=== PATIENT | female | born 1970 | race American Indian/Alaskan Native ===

== ENCOUNTER 2019-04-20 20:24 | Inpatient (IN) | payer MEDICAID ==
[2019-04-20] MEDS ORDERED: SODIUM CHLORIDE 0.9% 1000 ML 1,000 ML IV ONE (21:29)
[2019-04-20 22:09] LABS: Hematocrit 31.5 % (30.3-42.9); Hemoglobin 10.1 gm/dl (10.1-14.3); Mean Corpuscular HGB Conc 32 % (30-34); Mean Corpuscular Volume 74 fl (79-97); Platelet Count 310 K/mm3 (140-440); Red Blood Count 4.24 M/mm3 (3.65-5.03)
[2019-04-20 22:12] LABS: Red Cell Distribution Width 26.7 % (13.2-15.2)
--- NOTE | 2019-04-20 22:20 | Emergency Department Report ---
ED Extremity Problem HPI - General Chief complaint: Extremity Problem,Nontraumatic Stated complaint: RIGHT LEG SWELLING/POSSIBLE INFECTION Time Seen by Provider: 04/20/19 20:52 Source: EMS Mode of arrival: Stretcher Limitations: Physical Limitation - History of Present Illness Initial comments: Patient is a 48-year-old female presents emergency room with complaints of right lower extremity pain and edema that began 3 days ago. She states that she had a blister present to the right calf which opened and drained clear fluid. She states that she has had erythema and increased warmth to the right posterior leg. Patient has a past medical history of lymphedema, arthritis, hypertension, anemia, hyperlipidemia, prediabetes. Patient states that 2 years ago she had cellulitis of the leg and had to spend 3 months in the hospital due to infection. She denies any allergies medications. - Related Data Home Medications Medication Instructions Recorded Confirmed Last Taken Cholecalciferol (Vitamin D3) 5,000 unit PO DAILY 04/21/19 04/21/19 Unknown [Vitamin D3] Glucos Sul 2Kcl/MSM/Chond/C/Mn 1 each PO DAILY 04/21/19 04/21/19 Unknown [Glucosamine Chondroitin Cap] Lisinopril/Hydrochlorothiazide 1 each PO DAILY 04/21/19 04/21/19 Unknown [Zestoretic 20-12.5 mg] Loratadine [Claritin] 10 mg PO DAILY 04/21/19 04/21/19 Unknown Methocarbamol [Robaxin] 1,000 mg PO QID 04/21/19 04/21/19 Unknown Naproxen 500 mg PO BID 04/21/19 04/21/19 Unknown Simvastatin 10 mg PO QHS 04/21/19 04/21/19 Unknown Allergies Allergy/AdvReac Type Severity Reaction Status Date / Time No Known Allergies Allergy Unverified 04/20/19 21:51 ED Review of Systems ROS: Stated complaint: RIGHT LEG SWELLING/POSSIBLE INFECTION Other details as noted in HPI Comment: All other systems reviewed and negative ED Past Medical Hx - Past Medical History Previous Medical History?: Yes Hx Hypertension: Yes Hx Diabetes: Yes Additional medical history: Lymphedema, OA, Obesity, - Social History Smoking Status: Never Smoker Substance Use Type: None - Medications Home Medications: Home Medications Medication Instructions Recorded Confirmed Last Taken Type Cholecalciferol (Vitamin D3) 5,000 unit PO DAILY 04/21/19 04/21/19 Unknown History [Vitamin D3] Glucos Sul 2Kcl/MSM/Chond/C/Mn 1 each PO DAILY 04/21/19 04/21/19 Unknown History [Glucosamine Chondroitin Cap] Lisinopril/Hydrochlorothiazide 1 each PO DAILY 04/21/19 04/21/19 Unknown History [Zestoretic 20-12.5 mg] Loratadine [Claritin] 10 mg PO DAILY 04/21/19 04/21/19 Unknown History Methocarbamol [Robaxin] 1,000 mg PO QID 04/21/19 04/21/19 Unknown History Naproxen 500 mg PO BID 04/21/19 04/21/19 Unknown History Simvastatin 10 mg PO QHS 04/21/19 04/21/19 Unknown History ED Physical Exam - General Limitations: Physical Limitation General appearance: alert, in no apparent distress - Head Head exam: Present: atraumatic, normocephalic - Eye Eye exam: Present: normal appearance - ENT ENT exam: Present: mucous membranes moist - Respiratory Respiratory exam: Present: normal lung sounds bilaterally. Absent: respiratory distress, wheezes, rales, rhonchi, stridor, chest wall tenderness, accessory muscle use, decreased breath sounds, prolonged expiratory - Cardiovascular Cardiovascular Exam: Present: regular rate, normal rhythm, normal heart sounds. Absent: systolic murmur, diastolic murmur, rubs, gallop - Extremities Exam Extremities exam: Present: other (edema present to the BLE right greater than left, erythema and increased warmth present to the posterior leg from the lower half of the thigh down to just above the ankle, no erythema or increased warmth of the LLE) - Neurological Exam Neurological exam: Present: alert, oriented X3 - Psychiatric Psychiatric exam: Present: normal affect, normal mood - Skin Skin exam: Present: warm, dry, intact ED Course Vital Signs 04/20/19 20:27 Temperature 98.9 F Pulse Rate 95 H Respiratory 18 Rate Blood Pressure 142/68 O2 Sat by Pulse 100 Oximetry - Consultations Consultation #1: 04/20/19 23:[address] Irby, hospitalist regarding pt, will accept and resume care of patient, will admit to hospital ED Medical Decision Making - Lab Data Result diagrams: 04/20/19 21:51 04/20/19 21:51 Lab Results 04/20/19 04/20/19 04/20/19 Range/Units 21:51 21:51 21:51 WBC 12.0 H (4.5-11.0) K/mm3 RBC 4.24 (3.65-5.03) M/mm3 Hgb 10.1 (10.1-14.3) gm/dl Hct 31.5 (30.3-42.9) % MCV 74 L (79-97) fl MCH 24 L (28-32) pg MCHC 32 (30-34) % RDW 26.7 H (13.2-15.2) % Plt Count 310 (140-440) K/mm3 Add Manual Diff Complete Total Counted 100 Seg Neuts % (Manual) 73.0 H (40.0-70.0) % Band Neutrophils % 0 % Lymphocytes % (Manual) 20.0 (13.4-35.0) % Reactive Lymphs % (Man) 0 % Monocytes % (Manual) 3.0 (0.0-7.3) % Eosinophils % (Manual) 4.0 (0.0-4.3) % Basophils % (Manual) 0 (0.0-1.8) % Metamyelocytes % 0 % Myelocytes % 0 % Promyelocytes % 0 % Blast Cells % 0 % Nucleated RBC % Not Reportable Seg Neutrophils # Man 8.8 H (1.8-7.7) K/mm3 Band Neutrophils # 0.0 K/mm3 Lymphocytes # (Manual) 2.4 (1.2-5.4) K/mm3 Abs React Lymphs (Man) 0.0 K/mm3 Monocytes # (Manual) 0.4 (0.0-0.8) K/mm3 Eosinophils # (Manual) 0.5 H (0.0-0.4) K/mm3 Basophils # (Manual) 0.0 (0.0-0.1) K/mm3 Metamyelocytes # 0.0 K/mm3 Myelocytes # 0.0 K/mm3 Promyelocytes # 0.0 K/mm3 Blast Cells # 0.0 K/mm3 WBC Morphology Not Reportable Hypersegmented Neuts Not Reportable Hyposegmented Neuts Not Reportable Hypogranular Neuts Not Reportable Smudge Cells Not Reportable Toxic Granulation Not Reportable Toxic Vacuolation Not Reportable Dohle Bodies Not Reportable Pelger-Huet Anomaly Not Reportable [place] Rods Not Reportable Platelet Estimate Consistent w auto Clumped Platelets Not Reportable Plt Clumps, EDTA Not Reportable Large Platelets Not Reportable Giant Platelets Not Reportable Platelet Satelliting Not Reportable Plt Morphology Comment Not Reportable RBC Morphology Not Reportable Dimorphic RBCs Not Reportable Polychromasia Not Reportable Hypochromasia Not Reportable Poikilocytosis Not Reportable Anisocytosis 2+ Microcytosis Not Reportable Macrocytosis Not Reportable Spherocytes Not Reportable Pappenheimer Bodies Not Reportable Sickle Cells Not Reportable Target Cells Not Reportable Tear Drop Cells Not Reportable Ovalocytes Not Reportable Helmet Cells Not Reportable [place] Bodies Not Reportable [place] Rings Not Reportable [place] Cells Not Reportable Bite Cells Not Reportable Crenated Cell Not Reportable Elliptocytes Not Reportable Acanthocytes (Spur) Not Reportable Rouleaux Not Reportable Hemoglobin C Crystals Not Reportable Schistocytes Not Reportable Malaria parasites Not Reportable Angus Bodies Not Reportable Hem Pathologist Commnt No Sodium 135 L (137-145) mmol/L Potassium 3.9 (3.6-5.0) mmol/L Chloride 100.5 (98-107) mmol/L Carbon Dioxide 16 L (22-30) mmol/L Anion Gap 22 mmol/L BUN 9 (7-17) mg/dL Creatinine 0.8 (0.7-1.2) mg/dL Estimated GFR > 60 ml/min BUN/Creatinine Ratio 11 % Glucose 90 (65-100) mg/dL Lactic Acid 1.10 (0.7-2.0) mmol/L Calcium 9.3 (8.4-10.2) mg/dL Total Bilirubin 0.30 (0.1-1.2) mg/dL AST 13 (5-40) units/L ALT 10 (7-56) units/L Alkaline Phosphatase 96 (35-129) units/L Total Protein 7.3 (6.3-8.2) g/dL Albumin 3.3 L (3.9-5) g/dL Albumin/Globulin Ratio 0.8 % - Medical Decision Making Patient is a 48-year-old female presents emergency room with complaints of right lower extremity pain and edema that began 3 days ago. She states that she had a blister present to the right calf which opened and drained clear fluid. She states that she has had erythema and increased warmth to the right posterior leg. Patient has a past medical history of lymphedema, arthritis, hypertension, anemia, hyperlipidemia, prediabetes. Patient states that 2 years ago she had cellulitis of the leg and had to spend 3 months in the hospital due to infection. She denies any allergies medications. VSS. WBC 12,000, otherwise stable. on exam: edema present to the BLE right greater than left, erythema and increased warmth present to the posterior leg from the lower half of the thigh down to just above the ankle, no erythema or increased warmth of the LLE, examination consistent with significant cellulitis. there is no doppler US tech at night, will order for pt to have completed in the morning. pt given 1L NS and IV clindamycin. spoke with Dr. Irby, hospitalist regarding pt, will accept and resume care of patient, will admit to hospital - Differential Diagnosis DVT, cellulitis, PVD Critical care attestation.: If time is entered above; I have spent that time in minutes in the direct care of this critically ill patient, excluding procedure time. ED Disposition Clinical Impression: Leg swelling Cellulitis Qualifiers: Site of cellulitis: extremity Site of cellulitis of extremity: lower extremity Laterality: right Qualified Code(s): L03.115 - Cellulitis of right lower limb Disposition: OP ADMIT IP TO THIS HOSP Is pt being admited?: Yes Does the pt Need Aspirin: No Condition: Fair
[2019-04-20 22:33] LABS: Alanine Aminotransferase 10 units/L (7-56); Albumin 3.3 g/dL (3.9-5); BUN/Creatinine Ratio 11; Blood Urea Nitrogen 9 mg/dL (7-17); Calcium 9.3 mg/dL (8.4-10.2); Hemolysis Index 40
[2019-04-20 22:57] LABS: Basophils % (Manual) 0 % (0.0-1.8); Total Cells Counted 100
[2019-04-20 22:58] LABS: Anisocytosis 2+; Platelet Estimate Consistent w Auto
[2019-04-20] MEDS ORDERED: ONDANSETRON 4 MG/2 ML INJ IV PRN (23:36)
[2019-04-20] MEDS ORDERED: ACETAMINOPHEN 325 MG TAB PO PRN (23:36)
--- NOTE | 2019-04-21 00:35 | History and Physical Report ---
History of Present Illness Date of examination: 04/20/19 Date of admission: 04/20/19 23:36 Chief complaint: R leg swelling History of present illness: Patient is a 48-year-old female with a past medical history of OA, anemia, hyperlipidemia, hypertension and diabetes that presents to ER with complaints of right leg swelling, and tenderness x3 days. Patient states she has past history of lymphedema with previous admission in 2017. Patient states increased erythema to leg, with clear discharge over the past day, but unsure if she has been bitten; admits residency at an extended stay. Denies difficulty in breathing, chest pain, fever or chills at this time. Past History Past Medical History: diabetes, hypertension, other (Lymphedema) Past Surgical History: Other (Tubal ligation, ) Social history: lives with family Family history: diabetes, hypertension Medications and Allergies Allergies Allergy/AdvReac Type Severity Reaction Status Date / Time No Known Allergies Allergy Unverified 04/20/19 21:51 Home Medications Medication Instructions Recorded Confirmed Last Taken Type Cholecalciferol (Vitamin D3) 5,000 unit PO DAILY 04/21/19 04/21/19 Unknown History [Vitamin D3] Glucos Sul 2Kcl/MSM/Chond/C/Mn 1 each PO DAILY 04/21/19 04/21/19 Unknown History [Glucosamine Chondroitin Cap] Lisinopril/Hydrochlorothiazide 1 each PO DAILY 04/21/19 04/21/19 Unknown History [Zestoretic 20-12.5 mg] Loratadine [Claritin] 10 mg PO DAILY 04/21/19 04/21/19 Unknown History Methocarbamol [Robaxin] 1,000 mg PO QID 04/21/19 04/21/19 Unknown History Naproxen 500 mg PO BID 04/21/19 04/21/19 Unknown History Simvastatin 10 mg PO QHS 04/21/19 04/21/19 Unknown History Active Meds: Active Medications Acetaminophen (Tylenol) 650 mg PO Q4H PRN PRN Reason: Pain MILD(1-3)/Fever >100.5/CARTWRIGHT Ondansetron HCl (Zofran) 4 mg IV Q8H PRN PRN Reason: Nausea And Vomiting Sodium Chloride (Sodium Chloride Flush Syringe 10 Ml) 10 ml IV BID CHERIE Sodium Chloride (Sodium Chloride Flush Syringe 10 Ml) 10 ml IV PRN PRN PRN Reason: LINE FLUSH Review of Systems Constitutional: no weakness, no malaise, no lethargy Ears, nose, mouth and throat: no sore throat, no swelling in mouth, no swelling in throat Breasts: no swelling, no pain Cardiovascular: high blood pressure, no chest pain, no shortness of breath Respiratory: no congestion, no wheezing Gastrointestinal: no nausea, no vomiting, no diarrhea, no constipation Genitourinary Female: no flank pain Rectal: no pain, no incontinence, no bleeding Musculoskeletal: limitation of motion Integumentary: redness, sores Neurological: no change in speech, no change in mentation Psychiatric: no change in libido, no anxiety attacks, no difficulties concentrating Endocrine: no heat intolerance, no excessive thirst, no polydipsia, no excessive sweating Hematologic/Lymphatic: lymphedema Allergic/Immunologic: no wheezing, no angioedema Exam - Physical Exam Narrative exam: General appearance: Present: no acute distress - EENT Eyes: Present: PERRL ENT: clear oral mucosa - Neck Neck: Present: supple, normal ROM - Respiratory Respiratory effort: normal Respiratory: bilateral: CTA - Cardiovascular Heart Sounds: Present: S1 & S2. Absent: rub, click - Extremities Extremities: pulses symmetrical, No edema Peripheral Pulses: within normal limits - Abdominal General gastrointestinal: Present: soft, non-distended, normal bowel sounds Female genitourinary: Present: normal - Integumentary Integumentary: Right leg warm to touch, + drainage - Musculoskeletal Musculoskeletal: Moves all extremities, right leg swelling, erythema - Psychiatric Psychiatric: appropriate mood/affect, intact judgment & insight - Neurologic Neurologic: CNII-XII intact - Constitutional Vitals: Temp Pulse Resp BP Pulse Ox 98.9 F 95 H 18 142/68 100 04/20/19 20:27 04/20/19 20:27 04/20/19 20:27 04/20/19 20:27 04/20/19 20:27 Results - Labs CBC & Chem 7: 04/20/19 21:51 04/20/19 21:51 Labs: Laboratory Last Values WBC 12.0 K/mm3 (4.5-11.0) H 04/20/19 21:51 RBC 4.24 M/mm3 (3.65-5.03) 04/20/19 21:51 Hgb 10.1 gm/dl (10.1-14.3) 04/20/19 21:51 Hct 31.5 % (30.3-42.9) 04/20/19 21:51 MCV 74 fl (79-97) L 04/20/19 21:51 MCH 24 pg (28-32) L 04/20/19 21:51 MCHC 32 % (30-34) 04/20/19 21:51 RDW 26.7 % (13.2-15.2) H 04/20/19 21:51 Plt Count 310 K/mm3 (140-440) 04/20/19 21:51 Add Manual Diff Complete 04/20/19 21:51 Total Counted 100 04/20/19 21:51 Seg Neuts % (Manual) 73.0 % (40.0-70.0) H 04/20/19 21:51 Band Neutrophils % 0 % 04/20/19 21:51 Lymphocytes % (Manual) 20.0 % (13.4-35.0) 04/20/19 21:51 Reactive Lymphs % (Man) 0 % 04/20/19 21:51 Monocytes % (Manual) 3.0 % (0.0-7.3) 04/20/19 21:51 Eosinophils % (Manual) 4.0 % (0.0-4.3) 04/20/19 21:51 Basophils % (Manual) 0 % (0.0-1.8) 04/20/19 21:51 Metamyelocytes % 0 % 04/20/19 21:51 Myelocytes % 0 % 04/20/19 21:51 Promyelocytes % 0 % 04/20/19 21:51 Blast Cells % 0 % 04/20/19 21:51 Nucleated RBC % Not Reportable 04/20/19 21:51 Seg Neutrophils # Man 8.8 K/mm3 (1.8-7.7) H 04/20/19 21:51 Band Neutrophils # 0.0 K/mm3 04/20/19 21:51 Lymphocytes # (Manual) 2.4 K/mm3 (1.2-5.4) 04/20/19 21:51 Abs React Lymphs (Man) 0.0 K/mm3 04/20/19 21:51 Monocytes # (Manual) 0.4 K/mm3 (0.0-0.8) 04/20/19 21:51 Eosinophils # (Manual) 0.5 K/mm3 (0.0-0.4) H 04/20/19 21:51 Basophils # (Manual) 0.0 K/mm3 (0.0-0.1) 04/20/19 21:51 Metamyelocytes # 0.0 K/mm3 04/20/19 21:51 Myelocytes # 0.0 K/mm3 04/20/19 21:51 Promyelocytes # 0.0 K/mm3 04/20/19 21:51 Blast Cells # 0.0 K/mm3 04/20/19 21:51 WBC Morphology Not Reportable 04/20/19 21:51 Hypersegmented Neuts Not Reportable 04/20/19 21:51 Hyposegmented Neuts Not Reportable 04/20/19 21:51 Hypogranular Neuts Not Reportable 04/20/19 21:51 Smudge Cells Not Reportable 04/20/19 21:51 Toxic Granulation Not Reportable 04/20/19 21:51 Toxic Vacuolation Not Reportable 04/20/19 21:51 Dohle Bodies Not Reportable 04/20/19 21:51 Pelger-Huet Anomaly Not Reportable 04/20/19 21:51 [place] Rods Not Reportable 04/20/19 21:51 Platelet Estimate Consistent w auto 04/20/19 21:51 Clumped Platelets Not Reportable 04/20/19 21:51 Plt Clumps, EDTA Not Reportable 04/20/19 21:51 Large Platelets Not Reportable 04/20/19 21:51 Giant Platelets Not Reportable 04/20/19 21:51 Platelet Satelliting Not Reportable 04/20/19 21:51 Plt Morphology Comment Not Reportable 04/20/19 21:51 RBC Morphology Not Reportable 04/20/19 21:51 Dimorphic RBCs Not Reportable 04/20/19 21:51 Polychromasia Not Reportable 04/20/19 21:51 Hypochromasia Not Reportable 04/20/19 21:51 Poikilocytosis Not Reportable 04/20/19 21:51 Anisocytosis 2+ 04/20/19 21:51 Microcytosis Not Reportable 04/20/19 21:51 Macrocytosis Not Reportable 04/20/19 21:51 Spherocytes Not Reportable 04/20/19 21:51 Pappenheimer Bodies Not Reportable 04/20/19 21:51 Sickle Cells Not Reportable 04/20/19 21:51 Target Cells Not Reportable 04/20/19 21:51 Tear Drop Cells Not Reportable 04/20/19 21:51 Ovalocytes Not Reportable 04/20/19 21:51 Helmet Cells Not Reportable 04/20/19 21:51 [place]ir[place] Bodies Not Reportable 04/20/19 21:51 [place] Rings Not Reportable 04/20/19 21:51 [place] Cells Not Reportable 04/20/19 21:51 Bite Cells Not Reportable 04/20/19 21:51 Crenated Cell Not Reportable 04/20/19 21:51 Elliptocytes Not Reportable 04/20/19 21:51 Acanthocytes (Spur) Not Reportable 04/20/19 21:51 Rouleaux Not Reportable 04/20/19 21:51 Hemoglobin C Crystals Not Reportable 04/20/19 21:51 Schistocytes Not Reportable 04/20/19 21:51 Malaria parasites Not Reportable 04/20/19 21:51 Angus Bodies Not Reportable 04/20/19 21:51 Hem Pathologist Commnt No 04/20/19 21:51 Sodium 135 mmol/L (137-145) L 04/20/19 21:51 Potassium 3.9 mmol/L (3.6-5.0) 04/20/19 21:51 Chloride 100.5 mmol/L (98-107) 04/20/19 21:51 Carbon Dioxide 16 mmol/L (22-30) L 04/20/19 21:51 Anion Gap 22 mmol/L 04/20/19 21:51 BUN 9 mg/dL (7-17) 04/20/19 21:51 Creatinine 0.8 mg/dL (0.7-1.2) 04/20/19 21:51 Estimated GFR > 60 ml/min 04/20/19 21:51 BUN/Creatinine Ratio 11 % 04/20/19 21:51 Glucose 90 mg/dL (65-100) 04/20/19 21:51 Lactic Acid 1.10 mmol/L (0.7-2.0) 04/20/19 21:51 Calcium 9.3 mg/dL (8.4-10.2) 04/20/19 21:51 Total Bilirubin 0.30 mg/dL (0.1-1.2) 04/20/19 21:51 AST 13 units/L (5-40) 04/20/19 21:51 ALT 10 units/L (7-56) 04/20/19 21:51 Alkaline Phosphatase 96 units/L (35-129) 04/20/19 21:51 Total Protein 7.3 g/dL (6.3-8.2) 04/20/19 21:51 Albumin 3.3 g/dL (3.9-5) L 04/20/19 21:51 Albumin/Globulin Ratio 0.8 % 04/20/19 21:51 Assessment and Plan Assessment and plan: Cellulitis; right leg -Doppler ordered in ER -Continue on clindamycin SIRS -Likely related to cellulitis -monitor labs -IVF Morbid obesity BMI 73.5 -Lifestyle modification recommended DVT prophylaxis -SCDs -Lovenox Patient has been seen in conjunction with Dr. Irby who agrees with assessment and plan of care
[2019-04-21 05:40] LABS: Hematocrit 28.8 % (30.3-42.9); Hemoglobin 9.5 gm/dl (10.1-14.3); Mean Corpuscular HGB Conc 33 % (30-34); Mean Corpuscular Volume 73 fl (79-97); Platelet Count 316 K/mm3 (140-440); Red Blood Count 3.94 M/mm3 (3.65-5.03)
[2019-04-21 05:41] LABS: Red Cell Distribution Width 26.4 % (13.2-15.2)
[2019-04-21 05:48] LABS: BUN/Creatinine Ratio 11; Blood Urea Nitrogen 8 mg/dL (7-17); Calcium 9.1 mg/dL (8.4-10.2); Hemolysis Index 3
[2019-04-21 06:30] LABS: Basophils % (Manual) 0 % (0.0-1.8); Eosinophils % (Manual) 0 % (0.0-4.3); Total Cells Counted 100
[2019-04-21 06:31] LABS: Anisocytosis 1+
[2019-04-21 06:32] LABS: Ovalocytes Few; Platelet Estimate Consistent w Auto
[2019-04-21] MEDS: CLINDAMYCIN 600 MG/50 mL 600 MG/50 ML BAG IV SCH ×3 (06:35→23:29)
[2019-04-21] MEDS: LISINOPRIL 20 MG TAB PO SCH (09:31)
[2019-04-21] MEDS: hydroCHLOROthiazide 12.5 MG CAP PO SCH (09:31)
[2019-04-21] MEDS: CETIRIZINE 10 MG TAB PO SCH (09:31)
[2019-04-21] MEDS: SODIUM CHLORIDE 0.9% 1000 ML 1,000 ML IV SCH (09:31)
--- NOTE | 2019-04-21 11:19 | Vascular Lab Report ---
DUPLEX DOPPLER LOWER EXTREMITY VEINS, BILATERAL INDICATION: RLE edema and erythema, hx of lymphedema. TECHNIQUE: Duplex doppler imaging was performed through the veins of both lower extremities using ve nous compression and other maneuvers. COMPARISON: No relevant prior imaging study available. FINDINGS: Right Common femoral vein: Negative. Right Superficial femoral vein: Negative. Right Popliteal vein: Negative. Right Calf veins: Negative. Left Common femoral vein: Negative. Left Superficial femoral vein: Negative. Left Popliteal vein: Negative. Left Calf veins: Negative. Additional findings: None.. IMPRESSION: No sonographic evidence for DVT in either lower extremity. Signer Name: Tejas Sanders Jr, MD Signed: 04/21/2019 11:14 AM Workstation Name: [id number]
[2019-04-21] MEDS: POTASSIUM CHLORIDE ER 20 MEQ TAB PO SCH (13:13)
[2019-04-21] MEDS ORDERED: PRAVASTATIN 20 MG TAB PO SCH (22:00)
[2019-04-21] MEDS ORDERED: ENOXAPARIN 40 MG/0.4 ML INJ SUB-Q SCH (22:00)
[2019-04-22] MEDS: CLINDAMYCIN 600 MG/50 mL 600 MG/50 ML BAG IV SCH ×2 (06:29→14:43)
[2019-04-22] MEDS: SODIUM CHLORIDE 0.9% 1000 ML 1,000 ML IV SCH ×2 (06:29→14:45)
[2019-04-22] MEDS: POTASSIUM CHLORIDE ER 20 MEQ TAB PO SCH (10:28)
[2019-04-22] MEDS: LISINOPRIL 20 MG TAB PO SCH (10:28)
[2019-04-22] MEDS: CETIRIZINE 10 MG TAB PO SCH (10:28)
[2019-04-22] MEDS: hydroCHLOROthiazide 12.5 MG CAP PO SCH (10:29)
[2019-04-22 12:48] VITALS: BP 144/70
[2019-04-22 13:31] LABS: Hematocrit 30.8 % (30.3-42.9); Hemoglobin 9.9 gm/dl (10.1-14.3); Mean Corpuscular HGB Conc 32 % (30-34); Mean Corpuscular Volume 74 fl (79-97); Platelet Count 332 K/mm3 (140-440); Red Blood Count 4.19 M/mm3 (3.65-5.03)
[2019-04-22 13:35] LABS: Red Cell Distribution Width 26.6 % (13.2-15.2)
[2019-04-22 13:49] LABS: BUN/Creatinine Ratio 9; Blood Urea Nitrogen 6 mg/dL (7-17); Calcium 9.2 mg/dL (8.4-10.2); Hemolysis Index 15
--- NOTE | 2019-04-22 15:01 | Event Note ---
Date: 04/21/19 Patient seen and examined Patient is a 48-year-old female with a past medical history of OA, anemia, hyperlipidemia, hypertension and diabetes that presents to ER with complaints of right leg swelling, and tenderness x3 days. follow blood cx, cont abx
--- NOTE | 2019-04-22 15:06 | Progress Note ---
Assessment and Plan Acute Cellulitis; right leg -Doppler ordered in ER was negative -Continue on clindamycin - will follow blood cx SIRS -Likely related to cellulitis -monitor labs -IVF Morbid obesity BMI 73.5 -Lifestyle modification recommended Chronic lymphedema, outpt f/u, supportive care DVT prophylaxis -SCDs -Lovenox Disposition: home tomorrow if blood cx negative Subjective Date of service: 04/21/19 Interval history: Patient seen and examined No acute event overnight, blood culture pending Patient still complains of right lower extremity pain and swelling Objective - Exam Narrative Exam: General appearance: Present: no acute distress - EENT Eyes: Present: PERRL ENT: clear oral mucosa - Neck Neck: Present: supple, normal ROM - Respiratory Respiratory effort: normal Respiratory: bilateral: CTA - Cardiovascular Heart Sounds: Present: S1 & S2. Absent: rub, click - Extremities Extremities: pulses symmetrical, + edema and erythrema on right leg, + lymphedema on both leg Peripheral Pulses: within normal limits - Abdominal General gastrointestinal: Present: soft, non-distended, normal bowel sounds - Integumentary Integumentary: Right leg warm to touch, - Musculoskeletal Musculoskeletal: Moves all extremities, right leg swelling, erythema - Psychiatric Psychiatric: appropriate mood/affect, intact judgment & insight - Neurologic Neurologic: CNII-XII intact - Constitutional Vitals: Vital Signs - 12hr 04/22/19 04/22/19 04:34 12:41 Temperature 98.9 F 98.6 F Pulse Rate 86 93 H Respiratory 20 16 Rate Blood Pressure 137/70 144/70 O2 Sat by Pulse 97 95 Oximetry - Labs CBC & Chem 7: 04/22/19 12:54 04/22/19 12:54 Labs: Abnormal lab results 04/22/19 04/22/19 Range/Units 12:54 12:54 Hgb 9.9 L (10.1-14.3) gm/dl MCV 74 L (79-97) fl MCH 24 L (28-32) pg RDW 26.6 H (13.2-15.2) % Carbon Dioxide 20 L (22-30) mmol/L BUN 6 L (7-17) mg/dL
--- NOTE | 2019-04-22 15:15 | Discharge Summary ---
Providers - Providers Date of Admission: 04/20/19 23:36 Date of discharge: 04/22/19 Attending physician: LEYDA ALICEA Primary care physician: ENCEPHALOGRAPHER Hospitalization Condition: Fair Pertinent studies: LE venous doppler Hospital course: Discharge diagnosis: Acute Cellulitis; right leg -Doppler ordered in ER was negative -Continue on clindamycin - negative blood cx SIRS -Likely related to cellulitis -monitor labs -IVF Morbid obesity BMI 73.5 -Lifestyle modification recommended Chronic lymphedema, outpt f/u, supportive care DVT prophylaxis -SCDs -Lovenox Disposition: home today Disposition: DC-01 TO HOME OR SELFCARE Time spent for discharge: 34 minutes Core Measure Documentation - Palliative Care Palliative Care/ Comfort Measures: Not Applicable - Core Measures Any of the following diagnoses?: none Exam - Physical Exam Narrative exam: General appearance: Present: no acute distress - EENT Eyes: Present: PERRL ENT: clear oral mucosa - Neck Neck: Present: supple, normal ROM - Respiratory Respiratory effort: normal Respiratory: bilateral: CTA - Cardiovascular Heart Sounds: Present: S1 & S2. Absent: rub, click - Extremities Extremities: pulses symmetrical, + edema and erythrema on right leg, + lymphedema on both leg Peripheral Pulses: within normal limits - Abdominal General gastrointestinal: Present: soft, non-distended, normal bowel sounds - Integumentary Integumentary: Right leg warm to touch, - Musculoskeletal Musculoskeletal: Moves all extremities, right leg swelling, erythema - Psychiatric Psychiatric: appropriate mood/affect, intact judgment & insight - Neurologic Neurologic: CNII-XII intact - Constitutional Vitals: Temp Pulse Resp BP Pulse Ox 98.6 F 93 H 16 144/70 95 04/22/19 12:41 04/22/19 12:41 04/22/19 12:41 04/22/19 12:41 04/22/19 12:41 Plan Activity: advance as tolerated Weight Bearing Status: Weight Bear as Tolerated Diet: low fat, low salt Wound: keep clean and dry Follow up with: PRIMARY CAREMD [Primary Care Provider] - 3-5 Days KWADWO JAMES MD [Staff Physician] - 7 Days Prescriptions: cephALEXin [Keflex] 500 mg PO Q12HR #14 cap
[2019-04-22] MEDS ORDERED: POLYETHYLENE GLYCOL 3350 17 GM POWDER PO SCH (17:00)
== END 2019-04-22 18:00 | disposition home or self-care (01) | DRG 603 ==
LOC: ED 20:24 → 3A 23:36
PROVIDERS: ADMIT Internal Medicine Geriatric Medicine; ATTEND Internal Medicine
DX: L03.115 Cellulitis of right lower limb (principal); M19.90 Unspecified osteoarthritis, unspecified site; I10 Essential (primary) hypertension; E78.5 Hyperlipidemia, unspecified; E11.9 Type 2 diabetes mellitus without complications; E66.01 Morbid (severe) obesity due to excess calories; I89.0 Lymphedema, not elsewhere classified; Z68.45 Body mass index [BMI] 70 or greater, adult
CPT/HCPCS: 36415; 80048; 80053; 82140; 82962; 85007; 85025; 85027; 87040; 93970; G0378; A9270-GY; J1650; J7030